=== PATIENT | female | born 1995 | race Caucasian/White ===

== ENCOUNTER 2018-08-11 10:17 | Emergency (ER) | payer BC, OTHER ==
[~2018-08-11] VITALS: Ht 167.6 cm; Wt 68.2 kg
[2018-08-11 11:35] LABS: MONO SCRN NEGATIVE (NEGATIVE)
[2018-08-11] MEDS ORDERED: MAGICMW SSP (11:45)
[2018-08-11] MEDS ORDERED: AMOX500T PO (11:45)
[2018-08-11 11:55] VITALS: BP 106/77
== END 2018-08-11 11:56 | disposition home or self-care (01) ==
LOC: M ED 10:17
DX: J03.90 Acute tonsillitis, unspecified (principal)